=== PATIENT | male | born 1970 | race African-American/Black ===

== ENCOUNTER 2020-06-15 22:41 | Emergency (ER) | payer SELFPAY ==
[~2020-06-15] VITALS: Ht 182.9 cm; Wt 79.0 kg
[2020-06-15] MEDS ORDERED: KETOROLAC 30MG/ML VIAL IM ONE (23:15)
[2020-06-16] MEDS ORDERED: ONDANSETRON HCL 4MG/2ML INJ IV STA ×2 (01:38→02:04)
[2020-06-16] MEDS ORDERED: MORPHINE SULFATE 4 MG/ML CPJ (NOT FOR IM USE) IV STA ×2 (01:38→02:04)
[2020-06-16 02:14] LABS: HEMATOCRIT. 38.1 % (42.0-52.0); HEMOGLOBIN. 12.7 g/dL (14.0-18.0); MEAN CORPUSCULAR HEMOGLOBIN 32.1 pg (28.0-32.0); MEAN CORPUSCULAR VOLUME 95.9 fL (80.0-94.0); MEAN PLATELET VOLUME 6.9 fl (7.4-10.4); PLATELET 235 x1000/uL (130-400); RED BLOOD CELL COUNT 3.97 mill/uL (4.7-6.1); RED CELL DISTRIBUTION WIDTH 13.7 % (11.6-14.6)
[2020-06-16] MEDS ORDERED: HYDROMORPHONE HCL/PF 2MG/ML CPJ IV ONE ×2 (02:15→02:30)
[2020-06-16] MEDS ORDERED: LIDOCAINE HCL/PF 1% 10 MG/ML 5ML VIAL IJ ONE (02:15)
[2020-06-16 02:20] LABS: CHLORIDE 104 mEq/L (98-107)
[2020-06-16 02:24] LABS: ETHANOL BLOOD 29 mg/dL
[2020-06-16 02:28] LABS: PARTIAL THROMBOPLASTIN TIME 21.7 sec (23.4-31.0); PROTHROMBIN TIME 10.8 sec (9.6-11.0)
[2020-06-16 02:51] LABS: PLATELET ESTIMATE NORMAL
[2020-06-16 02:54] VITALS: BP 130/81
== END 2020-06-16 02:45 | disposition short-term general hospital (02) ==
LOC: ER 22:41
DX: S22.41XA Multiple fractures of ribs, right side, initial encounter for closed fracture (principal); S42.191A Fracture of other part of scapula, right shoulder, initial encounter for closed fracture; R58 Hemorrhage, not elsewhere classified; S27.0XXA Traumatic pneumothorax, initial encounter; Z98.1 Arthrodesis status; W01.0XXA Fall on same level from slipping, tripping and stumbling without subsequent striking against object, initial encounter; Y93.89 Activity, other specified; Y92.488 Other paved roadways as the place of occurrence of the external cause
CPT/HCPCS: 32551; 36415; 71045; 72128; 72131; 80053; 80320; 85025; 85610; 85730; 86850; 86900; 86901; 96372; 96374; 96375; 96376; 99285; J1170; J1885; J2270; J2405; J3490; G0480